=== PATIENT | female | born 1950 | race Two or more races ===

== ENCOUNTER 2016-05-01 05:51 | Emergency (ER) | payer MEDICARE, OTHER ==
[2016-05-01 06:10] VITALS: TEMP 97.1; BMI 27.3
--- NOTE | 2016-05-01 06:47 | PDOC ---
History of Present Illness - General History Source: Patient Exam Limitations: No Limitations - History of Present Illness Initial Comments: 05/01/16 07:03 The patient is a 65-year-old female, with no significant past medical history, who presents to the emergency department with joint pain that began 3-4 days ago. The patient states her pain is focused in her arms, right shoulder, knees, and feet. She reports swelling of her hands and feet bilaterally. The patient states she took aleve with minimal relief, and reports no alleviating factors. She reports a family history of rheumatoid arthritis.The patient reports she came down with a cold for a couple of days, with associated chest pain, coughing and difficulty sleeping. She denies headache and dizziness. She denies diaphoresis, palpitations, and shortness of breath. She denies nausea, vomiting , diarrhea, and constipation. Allergies: Penicillins Past Surgical History: None reported. Social History: Non-smoker. Denies alcohol or drug use. PCP: Dr. Mxaim Hernandez <Melvin Najera - Last Filed: 05/01/16 07:03> <Malissa Servin - Last Filed: 05/02/16 01:52> - General Chief Complaint: Pain Stated Complaint: JOINT PAIN Time Seen by Provider: 05/01/16 06:27 Past History <Melvin Najera - Last Filed: 05/01/16 07:03> - Past Medical History Other medical history: denies - Immunization History Immunization Up to Date: Yes - Psycho/Social/Smoking Cessation Hx Anxiety: No Suicidal Ideation: No Smoking History: Never smoked Have you smoked in the past 12 months: No Number of Cigarettes Smoked Daily: 0 Cigars Per Day: 0 Information on smoking cessation initiated: No Hx Alcohol Use: No Drug/Substance Use Hx: No <Malissa Servin - Last Filed: 05/02/16 01:52> - Past Medical History Allergies/Adverse Reactions: Allergies Allergy/AdvReac Type Severity Reaction Status Date / Time Penicillins Allergy Verified 05/01/16 06:08 Home Medications: Ambulatory Orders Oxycodone HCl/Acetaminophen [Percocet 5-325 mg Tablet] 1 tab PO Q6H PRN #12 tablet MDD 4 tabs 05/01/16 Pantoprazole Sodium [Protonix -] 0 mg PO DAILY 05/01/16 Valacyclovir HCl [Valtrex -] 0 mg PO DAILY 05/01/16 Review of Systems - Review of Systems Able to Perform ROS?: Yes Comments:: 05/01/16 07:04 GENERAL/CONSTITUTIONAL: No fever or chills. No weakness. HEAD, EYES, EARS, NOSE AND THROAT: No change in vision. No ear pain or discharge. No sore throat. CARDIOVASCULAR: No chest pain or shortness of breath. RESPIRATORY: No cough, wheezing, or hemoptysis. GASTROINTESTINAL: No nausea, vomiting, diarrhea or constipation. GENITOURINARY: No dysuria, frequency, or change in urination. MUSCULOSKELETAL: +Joint pain in arms, right shoulder, knees, and feet bilaterally. + Swelling in right wrist and left 2/3 MCP joints, and feet. No neck or back pain. SKIN: No rash NEUROLOGIC: No headache, vertigo, loss of consciousness, or change in strength/ sensation. ENDOCRINE: No increased thirst. No abnormal weight change. HEMATOLOGIC/LYMPHATIC: No anemia, easy bleeding, or history of blood clots. ALLERGIC/IMMUNOLOGIC: No hives or skin allergy. <Melvin Najera - Last Filed: 05/01/16 07:03> *Physical Exam - Vital Signs Last Vital Signs Temp Pulse Resp BP Pulse Ox 97.1 F L 56 L 20 152/91 97 05/01/16 06:08 05/01/16 06:08 05/01/16 06:08 05/01/16 06:08 05/01/16 06:08 - Physical Exam Comments: 05/01/16 07:04 GENERAL: The patient is awake, alert, and fully oriented, in no acute distress. HEAD: Normal with no signs of trauma. EYES: Pupils equal, round and reactive to light, extraoccular movements intact, sclera anticteric, conjunctiva clear with no pallor. ENT: Ears normal, nares patent, oropharynx clear without exudates. Moist mucous membranes. NECK: Normal range of motion, supple without lymphadenopathy, JVD, or masses. LUNGS: Breath sounds equal, clear to auscultation bilaterally. No wheeze/ crackles. HEART: Regular rate and rhythm, normal S1 and S2 without murmur or rub. ABDOMEN: Soft/nontender/nondistended. BS wnl. No guarding or rebound. No palpable masses. No hepatosplenomegaly. EXTREMITIES: +Swelling of right wrist and left 2/3 MCP joints. Normal range of motion. No clubbing or cyanosis. No cords, erythema, or tenderness. NEUROLOGICAL: Cranial nerves II through XII grossly intact. Normal speech, normal gait. PSYCH: Normal mood, normal affect. SKIN: Warm, Dry, normal turgor, no rashes or lesions noted. <Melvin Najera - Last Filed: 05/01/16 07:03> - Vital Signs Last Vital Signs Temp Pulse Resp BP Pulse Ox 97.1 F L 56 L 20 152/91 97 05/01/16 06:08 05/01/16 06:08 05/01/16 06:08 05/01/16 06:08 05/01/16 06:08 <Malissa Servin - Last Filed: 05/02/16 01:52> ED Treatment Course - Medications Given in the ED: ED Medications Discontinued Medications Generic Name Dose Route Start Last Admin Trade Name Freq PRN Reason Stop Dose Admin Oxycodone/Acetaminophen 2 combo 05/01/16 06:52 05/01/16 06:55 Percocet 5/325 - PO 05/01/16 06:53 2 combo ONCE ONE Administration <Melvin Najera - Last Filed: 05/01/16 07:03> - LABORATORY CBC & Chemistry Diagram: 05/01/16 07:06 05/01/16 07:06 <Malissa Servin - Last Filed: 05/02/16 01:52> Medical Decision Making - Medical Decision Making 05/01/16 06:53 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 She has PMD Maxim Hernandez and she states that she has no PMHx other than an episode of perioral numbness in the past that was worked up in the past and reveled nothing. Pt has a family history of rheumatoid arthritis ( sister) and pt has been taking alleve for the pain. However she states that the joint pain keeps her awake at night. She is afebrile and she has no other complaints. Labs will be sent and she will be given percocet for the pain in the ER. 05/01/16 06:55 Pt will be signed out to the day doctor. <Malissa Servin - Last Filed: 05/02/16 01:52> *DC/Admit/Observation/Transfer - Attestations Scribe Attestion: 05/01/16 07:04 Documentation prepared by Melvin Najera, acting as medical photographer for Malissa Servin MD. <Melvin Najera - Last Filed: 05/01/16 07:03> <Malissa Servin - Last Filed: 05/02/16 01:52> Diagnosis at time of Disposition: Joint pain Qualifiers: Joint pain location: unspecified Qualified Code(s): M25.50 - Pain in unspecified joint - Discharge Dispostion Disposition: HOME Condition at time of disposition: Stable - Prescriptions Prescriptions: Oxycodone HCl/Acetaminophen [Percocet 5-325 mg Tablet] 1 tab PO Q6H PRN #12 tablet MDD 4 tabs PRN Reason: Severe Pain - Referrals Referrals: Quintin Oliveira MD [Staff Physician] - Maxim Hernandez MD [Primary Care Provider] - - Patient Instructions Printed Discharge Instructions: DI for Arthralgia
[2016-05-01] MEDS ORDERED: OXYCODONE/APAP 5/325MG COMBO TABLET PO ONE (06:52)
[2016-05-01] MEDS ORDERED: OXYCODONE/APAP 5/325MG COMBO TABLET ONE (06:57)
[2016-05-01 07:39] LABS: BASOPHIL 0.4 % (0-2.0); EOSINOPHIL 2.1 % (0-4.5); MCH 29.8 pg (25.7-33.7); MCHC 34.2 g/dl (32.0-36.0); MEAN CELL VOLUME 87.2 fl (80-96); MEAN PLT VOLUME 9.1 fl (7.5-11.1); NEUTROPHILS 67.3 % (42.8-82.8); PLATELET COUNT 165 K/MM3 (134-434); RDW 13.4 % (11.6-15.6); WHITE BLOOD COUNT 6.6 K/mm3 (4.0-10.0)
[2016-05-01 08:08] LABS: ALBUMIN 3.9 g/dl (3.4-5.0); ANION GAP 3 (8-16); CALCIUM 8.9 mg/dL (8.5-10.1); CO2 28 mmol/L (21-32); GLUCOSE,RANDOM 84 mg/dL (74-106)
[2016-05-01 08:11] LABS: ALK PHOS 128 U/L (45-117); BILIRUBIN,TOTAL 0.6 mg/dL (0.2-1.0); C-REACTIVE PROTEIN 2.6 MG/DL (0.00-0.3); CREATININE 0.8 mg/dL (0.55-1.02); SGOT/AST 12 U/L (15-37); SGPT/ALT 13 U/L (12-78); TOT PROT 6.6 g/dl (6.4-8.2)
--- NOTE | 2016-05-01 10:11 | PDOC ---
[id number] 152/91 97 05/01/16 06:08 05/01/16 06:08 05/01/16 06:08 05/01/16 06:08 05/01/16 06:08 ED Treatment Course - LABORATORY CBC & Chemistry Diagram: 05/01/16 07:06 05/01/16 07:06 - ADDITIONAL ORDERS Additional order review: Laboratory Results 05/01/16 05/01/16 05/01/16 07:06 07:06 07:06 Sodium 138 Potassium 4.6 Chloride 107 Carbon Dioxide 28 Anion Gap 3 L BUN 16 Creatinine 0.8 Creat Clearance w eGFR > 60 Random Glucose 84 Uric Acid Cancelled Calcium 8.9 Total Bilirubin 0.6 AST 12 L ALT 13 Alkaline Phosphatase 128 H C-Reactive Protein 2.6 H D 2.3 H Total Protein 6.6 Albumin 3.9 05/01/16 07:06 RBC 3.97 MCV 87.2 MCHC 34.2 RDW 13.4 MPV 9.1 Neutrophils % 67.3 Lymphocytes % 19.4 Monocytes % 10.8 H Eosinophils % 2.1 Basophils % 0.4 - Medications Given in the ED: ED Medications Discontinued Medications Generic Name Dose Route Start Last Admin Trade Name Freq PRN Reason Stop Dose Admin Oxycodone/Acetaminophen 2 combo 05/01/16 06:52 05/01/16 06:55 Percocet 5/325 - PO 05/01/16 06:53 2 combo ONCE ONE Administration Medical Decision Making - Medical Decision Making Results d/w patient. She reports improvement with percocet. She is noted to have multiple swollen joints. Recommended rheumatology f/u, gave her information for Dr. Oliveira. She will check if her insurance is accepted. If not , I recommended calling her insurance company to see who accepts. *DC/Admit/Observation/Transfer Diagnosis at time of Disposition: Joint pain Qualifiers: Joint pain location: unspecified Qualified Code(s): M25.50 - Pain in unspecified joint - Discharge Dispostion Disposition: HOME Condition at time of disposition: Stable Admit: No - Prescriptions Prescriptions: Oxycodone HCl/Acetaminophen [Percocet 5-325 mg Tablet] 1 tab PO Q6H PRN #12 tablet MDD 4 tabs PRN Reason: Severe Pain - Referrals Referrals: Quintin Oliveira MD [Staff Physician] - Maxim Hernandez MD [Primary Care Provider] - - Patient Instructions Printed Discharge Instructions: DI for Arthralgia - Post Discharge Activity
[2016-05-01 10:16] VITALS: BP 128/65; PULSE 52
== END 2016-05-01 10:51 | disposition home or self-care (01) ==
LOC: JER 05:51
DX: M13.89 Other specified arthritis, multiple sites (principal)
CPT/HCPCS: 36415; 80053; 85025; 85651; 86140; 99282-25

== ENCOUNTER 2016-06-08 17:15 | Emergency (ER) | payer MEDICARE, OTHER ==
--- NOTE | 2016-06-08 19:50 | PDOC ---
History of Present Illness - General History Source: Patient <Gary Hebert - Last Filed: 06/08/16 22:11> - General History Source: Patient Exam Limitations: No Limitations - History of Present Illness Initial Comments: 06/08/16 20:23 The patient is a 66 year old female, with no significant past medical history, who presents to the emergency department complaining of worsening headache, numbness in tongue, and weakness in the legs bilaterally for approximately 3 days. The patient reports a 9 month history of intermittent headaches, however, during the past 3 days the headache has become constant. She reports new onset of dizziness, for which her PCP, Dr. Hernandez, suggested she present to the ED for further evaluation. The patient denies any head trauma or LOC. The patient reports the pain is localized to the right parietal region and rates it a 7-8/ 10. The patient states the numbness in her tongue is localized to the right side. She denies any changes in motor movement, taste, or appetite. The patient describes the weakness in her legs as if her knees were numb and shaky. She reports paresthesias radiating from her knee to the soles of her feet. The patient reports a mild sore throat, but denies any fever, chills, or cough. The patient reports occasional constipation, but denies, nausea, vomiting, or diarrhea. She reports she had the flu about one month ago, and has recovered well since. The patient reports she saw a gun club manager a couple weeks ago, who suggested she may have an autoimmune disorder, but was not definitively diagnosed. The patient denies chest pain, diaphoresis, palpitations, or shortness of breath. Allergies: Penicillins Past Surgical History: Appendectomy. Social History: Non-smoker. Denies alcohol or drug use. PCP: Maxim Hernandez <Melvin Najera - Last Filed: 06/08/16 22:31> - General Chief Complaint: Lightheaded Stated Complaint: PCP SENT/DIZZINESS Time Seen by Provider: 06/08/16 18:12 Past History - Surgical History Appendectomy: Yes - Immunization History Immunization Up to Date: Yes - Psycho/Social/Smoking Cessation Hx Anxiety: No Suicidal Ideation: No Smoking History: Never smoked Have you smoked in the past 12 months: No Number of Cigarettes Smoked Daily: 0 Cigars Per Day: 0 Hx Alcohol Use: No Drug/Substance Use Hx: No <Gary Hebert - Last Filed: 06/08/16 22:11> <Melvin Najera - Last Filed: 06/08/16 22:31> - Past Medical History Allergies/Adverse Reactions: Allergies Allergy/AdvReac Type Severity Reaction Status Date / Time Penicillins Allergy Verified 06/08/16 18:12 Home Medications: Ambulatory Orders Oxycodone HCl/Acetaminophen [Percocet 5-325 mg Tablet] 1 tab PO Q6H PRN #12 tablet MDD 4 tabs 05/01/16 Pantoprazole Sodium [Protonix -] 0 mg PO DAILY 05/01/16 Valacyclovir HCl [Valtrex -] 0 mg PO DAILY 05/01/16 Meclizine HCl 25 mg PO TID #30 tablet 06/08/16 Review of Systems - Review of Systems Able to Perform ROS?: Yes Comments:: 06/08/16 20:24 CONSTITUTIONAL: Absent: fever, no chills, no fatigue EYES: Absent: visual changes ENT: Present: +numbness of tongue, +sore throat Absent: ear pain CARDIOVASCULAR: Absent: chest pain, no palpitations RESPIRATORY: Absent: cough, no SOB GI: Present: +constipation Absent: abdominal pain, no nausea, no vomiting, no diarrhea GENITOURINARY: Absent: dysuria, no frequency, no hematuria MUSKULOSKELETAL: Present: +weakness of legs bilaterally Absent: back pain, no arthralgia, no myalgia SKIN: Absent: rash NEURO: Present: +headache, +dizziness <Melvin Najera - Last Filed: 06/08/16 22:31> *Physical Exam - Vital Signs Last Vital Signs Temp Pulse Resp BP Pulse Ox 97.9 F 60 18 142/77 99 06/08/16 18:13 06/08/16 18:13 06/08/16 18:13 06/08/16 18:13 06/08/16 18:13 <Gary Hebert - Last Filed: 06/08/16 22:11> - Vital Signs Last Vital Signs Temp Pulse Resp BP Pulse Ox 97.9 F 60 18 142/77 99 06/08/16 18:13 06/08/16 18:13 06/08/16 18:13 06/08/16 18:13 06/08/16 18:13 - Physical Exam Comments: 06/08/16 19:59 GENERAL: Well developed, well nourished. Awake and alert. No acute distress. HEENT: Normocephalic, atraumatic. PERRLA, EOMI. No conjunctival pallor. Sclera are non- icteric. Moist mucous membranes. Oropharynx is clear. NECK: Supple. Full ROM. No JVD. Carotid pulses 2+ and symmetric, without bruits. No thyromegaly. No lymphadenopathy. CARDIOVASCULAR: Bradycardic but regular. No murmurs, rubs, or gallops. Distal pulses are 2+ and symmetric. PULMONARY: No evidence of respiratory distress. Lungs clear to auscultation bilaterally. No wheezing, rales or rhonchi. ABDOMINAL: Soft. Non-tender. Non-distended. No rebound or guarding. No organomegaly. Normoactive bowel sounds. MUSCULOSKELETAL Normal range of motion at all joints. No bony deformities or tenderness. No CVA tenderness. EXTREMITIES: No cyanosis. No clubbing. No edema. No calf tenderness. SKIN: Warm and dry. Normal capillary refill. No rashes. No jaundice. NEUROLOGICAL: Alert, awake, appropriate. Cranial nerves 2-12 intact. No deficits to light touch and temperature in face, upper extremities and lower extremities. No motor deficits in the in face, upper extremities and lower extremities. Normoreflexic in the upper and lower extremities. Normal speech. Toes are down- going bilaterally. Gait is normal without ataxia. PSYCHIATRIC: Cooperative. Good eye contact. Appropriate mood and affect. <Melvin Najera - Last Filed: 06/08/16 22:31> Heart Score/ECG Review - ECG Impressions Comment:: 06/08/16 20:44 Vent. Rate: 55 bpm IMPRESSION: Sinus bradycardia. <Melvin Najera - Last Filed: 06/08/16 22:31> ED Treatment Course - LABORATORY CBC & Chemistry Diagram: 06/08/16 20:10 06/08/16 20:10 <Gary Hebert - Last Filed: 06/08/16 22:11> - LABORATORY CBC & Chemistry Diagram: 06/08/16 20:10 06/08/16 20:10 - RADIOLOGY Radiograph Interpretation: 06/08/16 20:59 EXAM: Head CT INTERPRETED BY: Dr. Hooks REVIEWED BY: Dr. Hebert IMPRESSION: No evidence of acute intracranial pathology <Melvin Najera - Last Filed: 06/08/16 22:31> Medical Decision Making - Medical Decision Making 06/08/16 22:12 Dr. Hebert: The scribe's documentation has been prepared under my direction and personally reviewed by me in its entirery. I confirm that the note above accurately reflects all work, treatment, procedures, and medical decision making performed by me. All studies returned to be negative including head CT. symptoms have Improved somewhat. Will discharge to have patient follow-up with her PCP. <Gary Hebert - Last Filed: 06/08/16 22:11> - Medical Decision Making 06/08/16 21:41 First call placed to Dr. Hernandez at 21:42. Awaiting call back. First call placed to Dr. Gordillo at 22:00. Awaiting call back. Received call back from Dr. Gordillo at 22:28. Case discussed at this time. <Melvin Najera - Last Filed: 06/08/16 22:31> *DC/Admit/Observation/Transfer - Discharge Dispostion Admit: No <Gary Hebert - Last Filed: 06/08/16 22:11> - Attestations Scribe Attestion: 06/08/16 19:59 Documentation prepared by Melvin Najera, acting as medical technicians for Gary Hebert DO. <Melvin Najera - Last Filed: 06/08/16 22:31> Diagnosis at time of Disposition: Dizziness, Vertigo - Discharge Dispostion Disposition: HOME Condition at time of disposition: Stable - Prescriptions Prescriptions: Meclizine HCl 25 mg PO TID #30 tablet - Referrals Referrals: STAFF,NOT ON [Primary Care Provider] - Courtney Gordillo MD [Staff Physician] - - Patient Instructions Printed Discharge Instructions: DI for Dizziness-Nonvertigo, Vertigo
[2016-06-08 20:22] LABS: BASOPHIL 0.8 % (0-2.0); EOSINOPHIL 2.8 % (0-4.5); MCH 29.4 pg (25.7-33.7); MCHC 33.7 g/dl (32.0-36.0); MEAN CELL VOLUME 87.3 fl (80-96); MEAN PLT VOLUME 10.2 fl (7.5-11.1); NEUTROPHILS 37.7 % (42.8-82.8); PLATELET COUNT 187 K/MM3 (134-434); RDW 13.5 % (11.6-15.6); WHITE BLOOD COUNT 3.9 K/mm3 (4.0-10.0)
[2016-06-08 20:23] LABS: URINE APPEARANCE CLEAR; URINE BILIRUBIN NEGATIVE (NEGATIVE); URINE BLOOD NEGATIVE (NEGATIVE); URINE COLOR YELLOW; URINE GLUCOSE (UA) NEGATIVE (NEGATIVE); URINE KETONE NEGATIVE (NEGATIVE); URINE LEUK ESTERASE NEGATIVE (NEGATIVE); URINE NITRITE NEGATIVE (NEGATIVE); URINE PROTEIN NEGATIVE (NEGATIVE); URINE UROBILINOGEN NEGATIVE E.U./dl (0.2-1.0)
[2016-06-08 20:42] LABS: INR 1.11 (0.82-1.09); PROTHROMBIN TIME (PATIENT) 12.2 SEC (9.98-11.88)
[2016-06-08 21:21] LABS: ALBUMIN 4.1 g/dl (3.4-5.0); ANION GAP 8 (8-16); CALCIUM 8.9 mg/dL (8.5-10.1); CHOLESTEROL 198 mg/dL (50-200); CO2 28 mmol/L (21-32); CREATININE 0.9 mg/dL (0.55-1.02); GLUCOSE,RANDOM 78 mg/dL (74-106); SGOT/AST 17 U/L (15-37); SGPT/ALT 18 U/L (12-78)
[2016-06-08 21:23] LABS: ALK PHOS 138 U/L (45-117); BILIRUBIN,TOTAL 0.5 mg/dL (0.2-1.0); LDL CHOLESTEROL (ONLY SJRH) 130 mg/dL (5-100); TOT PROT 7.5 g/dl (6.4-8.2); TROPONIN I 0.03 ng/ml (0.00-0.05)
[2016-06-08] MEDS ORDERED: MECLIZINE HCL 25 MG TABLET (FP) PO STA ×2 (22:12→22:52)
[2016-06-08] MEDS ORDERED: MECLIZINE HCL 25 MG TABLET (FP) ONE ×2 (22:18→22:53)
[2016-06-08] MEDS: OXYCODONE/APAP 5/325MG COMBO TABLET PO ONE ×2 (22:56→23:04)
[2016-06-08] MEDS ORDERED: OXYCODONE/APAP 5/325MG COMBO TABLET ONE (22:57)
[2016-06-08 23:05] VITALS: BP 150/83; PULSE 52; TEMP 98
--- NOTE | 2016-06-09 16:09 | EKG ---
Test Reason : Blood Pressure : / mmHG Vent. Rate : 055 BPM Atrial Rate : 055 BPM P-R Int : 180 ms QRS Dur : 080 ms QT Int : 426 ms P-R-T Axes : 057 002 043 degrees QTc Int : 407 ms SINUS BRADYCARDIA OTHERWISE NORMAL ECG WHEN COMPARED WITH ECG OF 17-OCT-2004 14:19, VENT. RATE HAS DECREASED BY 29 BPM Confirmed by CALEB RIDER MD ([id number]) on 06/09/2016 4:09:27 PM Referred By: Confirmed By:CALEB RIDER MD
== END 2016-06-08 23:06 | disposition home or self-care (01) ==
LOC: JER 17:15
DX: R42 Dizziness and giddiness (principal)
CPT/HCPCS: 36415; 70450-TC; 80053; 81003; 82465; 82550; 83718; 83721; 84478; 84484; 85025; 85610; 86850; 86900; 86901; 93005; 93010; 99281-25

== ENCOUNTER 2018-03-18 06:43 | Emergency (ER) | payer MEDICARE ==
[2018-03-18 07:00] VITALS: BP 132/87; PULSE 64; TEMP 97.7; BMI 29.2
--- NOTE | 2018-03-18 07:31 | PDOC ---
History of Present Illness - General Chief Complaint: Cold Symptoms Stated Complaint: SORE THROAT Time Seen by Provider: 03/18/18 07:03 History Source: Patient Exam Limitations: No Limitations - History of Present Illness Initial Comments: 67 y.o F hx of appendectomy, presents with productive cough with yellow-green phlegm x 4 days along with sore throat, chills, body aches, mild congestion and CP with coughing. Mentions she is around a lot of kids. Denies recent travel. Denies fever, sob, abd pain, n/v/d, urinary complaints. Denies smoking. Patient did not receive flu vaccine this year. 03/18/18 07:27 Past History - Past Medical History Allergies/Adverse Reactions: Allergies Allergy/AdvReac Type Severity Reaction Status Date / Time Penicillins Allergy Verified 03/18/18 06:57 Home Medications: Ambulatory Orders Oxycodone HCl/Acetaminophen [Percocet 5-325 mg Tablet] 1 tab PO Q6H PRN #12 tablet MDD 4 tabs 05/01/16 Pantoprazole Sodium [Protonix -] 0 mg PO DAILY 05/01/16 Valacyclovir HCl [Valtrex -] 0 mg PO DAILY 05/01/16 Meclizine HCl 25 mg PO TID #30 tablet 06/08/16 - Surgical History Appendectomy: Yes - Immunization History Immunization Up to Date: Yes - Suicide/Smoking/Psychosocial Hx Smoking History: Never smoked Have you smoked in the past 12 months: No Number of Cigarettes Smoked Daily: 0 Cigars Per Day: 0 Information on smoking cessation initiated: No Hx Alcohol Use: No Drug/Substance Use Hx: No Review of Systems - Review of Systems Able to Perform ROS?: Yes Comments:: See HPI 03/18/18 07:29 *Physical Exam - Vital Signs Last Vital Signs Temp Pulse Resp BP Pulse Ox 97.7 F 64 18 132/87 100 03/18/18 06:57 03/18/18 06:57 03/18/18 06:57 03/18/18 06:57 03/18/18 06:57 - Physical Exam General Appearance: No: Apparent Distress HEENT: positive: Normal Voice. negative: Muffled/Hoarse voice, Pharyngeal Erythema, Tonsillar Exudate, Tonsillar Erythema, Rhinorrhea, Sinus Tenderness Respiratory/Chest: positive: Lungs Clear, Normal Breath Sounds. negative: Respiratory Distress, Accessory Muscle Use Cardiovascular: positive: Regular Rhythm, Regular Rate, S1, S2. negative: Murmur Gastrointestinal/Abdominal: positive: Normal Bowel Sounds, Soft. negative: Tender, Distended, Guarding, Rebound Extremity: positive: Normal Inspection. negative: Pedal Edema, Calf Tenderness Neurologic: positive: Fully Oriented, Alert, Normal Mood/Affect ED Treatment Course - RADIOLOGY Radiology Studies Ordered: Category Date Time Status CHEST PA & LAT [RAD] Stat Radiology 03/18/18 07:17 Ordered Medical Decision Making - Medical Decision Making 67 y.o F with no significant pmh presents with URI sxs x 4 days. Consider viral illness/influenza vs PNA. Unlikely ACS given no risk factors. Plan: CXR, Flu swab 03/18/18 07:30 CXR negative Flu negative Likely viral illness stable for d/c 03/18/18 08:22 *DC/Admit/Observation/Transfer Diagnosis at time of Disposition: Viral URI with cough - Discharge Dispostion Disposition: HOME Condition at time of disposition: Stable Decision to Admit order: No - Referrals Referrals: Maxim Hernandez MD [Primary Care Provider] - 3 days - Patient Instructions Printed Discharge Instructions: DI for Viral Upper Respiratory Infection -- Adult Additional Instructions: Thank you for choosing [facility]. It was a pleasure taking care of you. You were found to not have the flu or pneumonia Encourage drinking plenty of fluids, rest Take OTC Robitussin or Mucinex as needed to help with cough Return to the Emergency Department if your symptoms worsen or persist, you have fever, shortness of breath, coughing up blood, chest pain, severe abdominal pain , vomiting or other concerning symptoms. - Post Discharge Activity
== END 2018-03-18 08:31 | disposition home or self-care (01) ==
LOC: JER 06:43
DX: J06.9 Acute upper respiratory infection, unspecified (principal); B97.89 Other viral agents as the cause of diseases classified elsewhere
CPT/HCPCS: 71046-TC-FY; 87804; 99281-25

== ENCOUNTER 2022-06-03 04:19 | Day surgery (SDC) | payer OTHER ==
[2022-06-01 13:11] VITALS: BMI 26.0
[2022-06-03] MEDS ORDERED: BUPIVACAINE HCL/PF 0.5% (5MG/ML) 10 ML VIAL ONE (12:54)
[2022-06-03] MEDS ORDERED: LIDOCAINE HCL 1%, 10 MG/ML (20ML VIAL) ONE (12:54)
[2022-06-03] MEDS ORDERED: MIDAZOLAM HCL 2 MG/2 ML SINGLE DOSE VIAL ONE (13:06)
[2022-06-03] MEDS ORDERED: LIDOCAINE HCL 1% PRESERVATIVE FREE - 30ML VIAL IJ ONE (13:15)
[2022-06-03] MEDS ORDERED: ePHEDrine SULFATE 50 MG/1 ML AMPULE ONE (13:43)
[2022-06-03] MEDS ORDERED: BUPIVACAINE HCL/PF 0.5% (5MG/ML) 10 ML VIAL IJ ONE ×2 (14:13)
[2022-06-03] MEDS ORDERED: oxyCODONE HCL 5 MG TABLET PO PRN (15:36)
[2022-06-03] MEDS ORDERED: ONDANSETRON 4 MG/2 ML VIAL IVPUSH PRN (15:36)
[2022-06-03] MEDS ORDERED: PROMETHAZINE HCL 25 MG/1 ML VIAL IVPB PRN (15:36)
[2022-06-03] MEDS ORDERED: LACTATED RINGERS SOLUTION 1,000 ML IV SCH (15:45)
[2022-06-03 16:56] VITALS: RESP 18
[2022-06-03 17:18] VITALS: BP 142/66; PULSE 61; TEMP 97
== END 2022-06-03 17:18 | disposition home or self-care (01) ==
LOC: JASU-SURG 04:19
PROVIDERS: ATTEND Podiatrist Foot Surgery
PROC: 0QBQ0ZZ Excision of Right Toe Phalanx, Open Approach (ICD-10-PCS; principal; 2022-06-03 13:00)
PROC: 0SRP0JZ Replacement of Right Toe Phalangeal Joint with Synthetic Substitute, Open Approach (ICD-10-PCS; 2022-06-03 13:00)
DX: M21.621 Bunionette of right foot (principal); M20.41 Other hammer toe(s) (acquired), right foot
CPT/HCPCS: 28285; 28310; C1713; 88305-TC; 88311-TC; 94760